=== PATIENT | male | born 1955 | race African-American/Black ===

== ENCOUNTER 2022-11-08 12:04 | Observation (INO) | payer MEDICARE, MEDICAID ==
[2022-11-08] MEDS ORDERED: CEFAZOLIN 1 GM VIAL ONE (13:22)
[2022-11-08] MEDS ORDERED: Boostrix 0.5 ML (Tdap) VIAL (>/=7 yrs of age) ONE (13:22)
[2022-11-08] MEDS ORDERED: Lidocaine 1% (PF) 30 ML VIAL ONE (13:45)
[2022-11-08 14:00] LABS: #Eosinphils 0.1 10x3/uL (0.0-0.5); #Monocytes 0.4 10x3/uL (0.0-1.1); #Neutrophils 2.5 10x3/uL (1.5-8.4); %Basophils 0.2 % (0.0-2.0); %Eosinophils 2.1 % (0.0-6.0); %Lymphocytes 31.9 % (18.0-47.0); %Monocytes 8.3 % (0.0-10.0); %Neutrophils 57.3 % (40.0-75.0); Hemoglobin 8.5 g/dL (13.5-17.5); Mean Corpuscular HGB CONC 30.9 g/dL (32.0-36.0); Mean Corpuscular Hemoglobin 26.6 pg (27.0-33.0); Mean Corpuscular Volume 86.2 fl (81.2-95.1); Mean Platelet Volume 9.9 fl (7.4-10.4); Platelet Count 187 10x3/uL (150-450); RBC Distribution Width 13.5 % (11.5-14.5); Red Blood Cell (RBC) Count 3.19 10x6/uL (4.32-5.72); White Blood Cell (WBC) Count 4.3 10x3/uL (3.5-10.5)
[2022-11-08 14:13] LABS: ALT (SGPT) 40 U/L (8-55); AST (SGOT) 56 U/L (5-34); Albumin 3.7 g/dL (3.4-4.8); Alkaline Phosphatase 68 U/L (40-110); Anion Gap 14 mmol/L (10-20); BUN (Urea Nitrogen) 16 mg/dL (8.4-25.7); Bilirubin, Total 0.3 mg/dL (0.2-1.2); CK (CPK) 289 U/L (30-200); Calc. Creatinine Clearance 0 mL/min (70-130); Calcium 8.6 mg/dL (7.8-10.44); Carbon Dioxide 24 mmol/L (23-31); Chloride 104 mmol/L (98-107); Estimated GFR 79; Globulin 3.4 g/dL (2.4-3.5); Glucose 94 mg/dL (80-115); Magnesium 1.5 mg/dL (1.6-2.6); Protein, Total 7.1 g/dL (5.8-8.1); Sodium 138 mmol/L (136-145)
[2022-11-08] MEDS ORDERED: Magnesium 2 GM/50 ML BAG (IN WATER) ONE (14:47)
[2022-11-08] MEDS ORDERED: Ondansetron PF 4 MG/2 ML Vial IVP PRN (15:32)
[2022-11-08] MEDS ORDERED: Acetaminophen 650 MG Suppository PR PRN (15:32)
[2022-11-08] MEDS ORDERED: HYDROcodone/Acetaminophen 5/325 mg Tablet PO PRN (15:32)
[2022-11-08 16:02] LABS: Magnesium 1.5 mg/dL (1.6-2.6)
[2022-11-08 16:44] LABS: Iron 66 ug/dL (65-175); Iron Binding Capacity, Total 306 mcg/dL (261-462)
[2022-11-08 18:47] LABS: Bilirubin Neg (Negative); Blood, Urine Negative (Negative); Clarity Clear (Clear); Glucose, Urine (Dipstick) Normal (Negative); Ketone, Urine Negative (Negative); Leukocyte Negative (Negative); Nitrite Negative (Negative); Protein, Urine (Dipstick) 15 mg/dl (Neg-Trace)
[2022-11-08 19:15] VITALS: BMI 15.8
[2022-11-08 19:46] LABS: Bacteria/HPF Rare-Few HPF (None Seen); RBC/HPF 0-3 HPF (0-3); Squamous Epithelial 0-3 HPF (0-3); WBC/HPF 0-3 HPF (0-3)
[2022-11-08] MEDS: Heparin 5,000 UNITS/ML VIAL SC SCH (20:10)
[2022-11-08] MEDS ORDERED: Atorvastatin Calcium 40 MG TAB PO SCH (21:00)
[2022-11-08] MEDS ORDERED: Donepezil HCl 5 MG TAB PO SCH (21:00)
[2022-11-08] MEDS ORDERED: Montelukast Sodium 10 mg Tablet PO SCH (21:00)
[2022-11-09 04:30] LABS: #Eosinphils 0.2 10x3/uL (0.0-0.5); #Monocytes 0.4 10x3/uL (0.0-1.1); #Neutrophils 2.3 10x3/uL (1.5-8.4); %Basophils 0.2 % (0.0-2.0); %Eosinophils 3.3 % (0.0-6.0); %Lymphocytes 36.5 % (18.0-47.0); %Monocytes 8.2 % (0.0-10.0); %Neutrophils 51.8 % (40.0-75.0); Hemoglobin 8.1 g/dL (13.5-17.5); Mean Corpuscular HGB CONC 31.2 g/dL (32.0-36.0); Mean Corpuscular Hemoglobin 27.1 pg (27.0-33.0); Mean Platelet Volume 9.8 fl (7.4-10.4); Platelet Count 177 10x3/uL (150-450); RBC Distribution Width 13.5 % (11.5-14.5); Red Blood Cell (RBC) Count 2.99 10x6/uL (4.32-5.72); White Blood Cell (WBC) Count 4.5 10x3/uL (3.5-10.5)
[2022-11-09 04:39] LABS: ALT (SGPT) 35 U/L (8-55); AST (SGOT) 51 U/L (5-34); Albumin 3.5 g/dL (3.4-4.8); Alkaline Phosphatase 65 U/L (40-110); Anion Gap 14 mmol/L (10-20); BUN (Urea Nitrogen) 13 mg/dL (8.4-25.7); Bilirubin, Total 0.5 mg/dL (0.2-1.2); Calc. Creatinine Clearance 62 mL/min (70-130); Calcium 8.4 mg/dL (7.8-10.44); Carbon Dioxide 24 mmol/L (23-31); Chloride 107 mmol/L (98-107); Estimated GFR 93; Globulin 3.5 g/dL (2.4-3.5); Glucose 73 mg/dL (80-115); Sodium 141 mmol/L (136-145)
[2022-11-09] MEDS ORDERED: Levothyroxine Sodium 25 MCG TAB PO SCH (06:00)
[2022-11-09] MEDS ORDERED: Amlodipine 10 MG TAB PO SCH (09:00)
[2022-11-09] MEDS ORDERED: Aspirin 81 mg Enteric Coated Tablet PO SCH (09:00)
[2022-11-09] MEDS ORDERED: Lisinopril 20 MG TAB PO SCH (09:00)
[2022-11-09] MEDS ORDERED: Sertraline 100 MG TAB PO SCH (09:00)
[2022-11-09] MEDS: Heparin 5,000 UNITS/ML VIAL SC SCH ×2 (09:14→15:48)
[2022-11-09 15:30] LABS: Magnesium 1.8 mg/dL (1.6-2.6)
[2022-11-09 17:30] VITALS: BP 128/64; TEMP 97.9
== END 2022-11-09 19:50 ==
LOC: SUATTDRO 12:04 → CSHERS 12:04 → INTOOBSV 17:45 → CSHTELE 17:45
PROVIDERS: ADMIT Internal Medicine; ATTEND Internal Medicine
DX: R25.1 Tremor, unspecified (principal); E83.42 Hypomagnesemia; F03.90 Unspecified dementia, unspecified severity, without behavioral disturbance, psychotic disturbance, mood disturbance, and anxiety; G40.909 Epilepsy, unspecified, not intractable, without status epilepticus; E03.9 Hypothyroidism, unspecified; I12.9 Hypertensive chronic kidney disease with stage 1 through stage 4 chronic kidney disease, or unspecified chronic kidney disease; N18.9 Chronic kidney disease, unspecified; D63.1 Anemia in chronic kidney disease; Z91.81 History of falling; J98.4 Other disorders of lung; E78.5 Hyperlipidemia, unspecified; F10.10 Alcohol abuse, uncomplicated; F17.200 Nicotine dependence, unspecified, uncomplicated; Z20.822 Contact with and (suspected) exposure to COVID-19; Z86.73 Personal history of transient ischemic attack (TIA), and cerebral infarction without residual deficits; Z79.82 Long term (current) use of aspirin; Z79.02 Long term (current) use of antithrombotics/antiplatelets; Z79.899 Other long term (current) drug therapy; Z88.0 Allergy status to penicillin
CPT/HCPCS: 12011; 70450; 70486; 70551; 71045; 80053 ×2; 81001; 82550; 82728; 83540; 83550; 83735 ×2; 84484; 85025 ×2; 90471; 90715; 93005; 96365; 96367; 97116; 97535; 99285; U0003; U0005; J0690; J1644; J2001; J3475